=== PATIENT | female | born 1935 | race Asian ===

== ENCOUNTER 2020-12-07 13:46 | Emergency (ER) | payer MEDICARE, BC ==
[~2020-12-07] VITALS: Ht 170.2 cm; Wt 81.8 kg
[2020-12-07 14:03] VITALS: TEMP 98.1
[2020-12-07 14:50] LABS: BASO % 0.4 % (0.0-2.0); EOS # 0.2 (0.0-0.7); GRAN # 6.6 (1.4-6.5); GRAN % 69.6 % (42.2-75.2); LYMPH # 1.6 (1.2-3.4); LYMPH % 16.9 % (20.0-51.0); MEAN CELL VOLUME 91 fl (80.0-100.0); MEAN CORPUSCULAR HEMOGLOBIN 31 pg (27.0-31.0); MEAN CORPUSCULAR HGB CONC 33 g/dl (33.0-37.0); MEAN PLATELET VOLUME 10.5 fl (7.4-10.4); MONO % 10.6 % (1.7-9.3); PLATELET COUNT 143 K/mm3 (130-400); RED BLOOD COUNT 3.93 M/mm3 (4.10-5.30); REDCELL DISTRIBUTION WIDTH-CV 13.4 % (11.5-14.5)
[2020-12-07 14:59] LABS: HEMATOCRIT 35.9 % (37.0-47.0)
[2020-12-07 15:03] LABS: BILIRUBIN,TOTAL 0.6 mg/dL (0.0-1.0); C-REACTIVE PROTEIN 2.8 mg/dL (0.0-0.9); CREATININE, serum 0.89 (0.52-1.25); POTASSIUM 3.9 mmol/L (3.4-5.0); TOTAL PROTEIN 6.6 gm/dL (6.4-8.2)
[2020-12-07 15:07] LABS: INR 1.1 (0.8-3.0); PROTHROMBIN TIME 12.5 SECONDS (9.7-12.8)
[2020-12-07 15:11] LABS: COLLECTION METHOD CATHETER
[2020-12-07 15:26] LABS: PH 5 (5-8); SQUAMOUS EPITHELIAL None Seen /hpf; URINE APPEARANCE Clear; URINE BACTERIA None Seen /hpf; URINE BILIRUBIN Negative (NEGATIVE); URINE BLOOD Negative (NEGATIVE); URINE COLOR Yellow; URINE GLUCOSE Negative (NEGATIVE); URINE KETONE Trace (NEGATIVE); URINE LEUKOCYTE ESTERASE Negative (NEGATIVE); URINE NITRATE Negative (NEGATIVE); URINE PROTEIN(semi-quant) Negative (NEGATIVE); URINE RBC 0-2 /hpf; URINE UROBILINOGEN Negative (NEGATIVE)
[2020-12-07 19:20] VITALS: BP 133/70; PULSE 64
== END 2020-12-07 19:20 | disposition home or self-care (01) ==
LOC: COL.ER 13:46
PROVIDERS: Family Medicine
DX: F03.90 Unspecified dementia, unspecified severity, without behavioral disturbance, psychotic disturbance, mood disturbance, and anxiety (principal); I10 Essential (primary) hypertension; F41.9 Anxiety disorder, unspecified; Z86.73 Personal history of transient ischemic attack (TIA), and cerebral infarction without residual deficits
CPT/HCPCS: 31860; A4314

== ENCOUNTER 2022-01-13 13:02 | Emergency (ER) | payer MEDICARE, BC ==
[~2022-01-13] VITALS: Ht 154.9 cm; Wt 92.7 kg
[2022-01-13 14:08] LABS: BASO % 0.3 % (0.0-2.0); EOS # 0.1 K/mm3 (0.0-0.7); EOS % 0.6 % (0.0-4.0); GRAN # 6.2 K/mm3 (1.4-6.5); GRAN % 66.6 % (42.2-75.2); HEMOGLOBIN 12.1 g/dl (12.5-16.0); LYMPH # 2.2 K/mm3 (1.2-3.4); LYMPH % 23.2 % (20.0-51.0); MEAN CELL VOLUME 88 fl (80.0-100.0); MEAN CORPUSCULAR HEMOGLOBIN 30 pg (27-31); MEAN CORPUSCULAR HGB CONC 35 g/dl (33.0-37.0); MEAN PLATELET VOLUME 11.7 fl (7.4-10.4); MONO # 0.8 K/mm3 (0.1-0.6); MONO % 8.8 % (1.7-9.3); PLATELET COUNT 156 K/mm3 (130-400); RED BLOOD COUNT 3.99 M/mm3 (4.10-5.30); REDCELL DISTRIBUTION WIDTH-CV 12.4 % (11.5-14.5)
[2022-01-13 14:15] LABS: HEMATOCRIT 34.9 % (37.0-47.0)
[2022-01-13 14:17] LABS: ALBUMIN 4.1 gm/dL (3.4-4.8); BILIRUBIN,TOTAL 0.7 mg/dL (0.2-1.2); CALCIUM 9.6 mg/dL (8.4-10.2); CREATININE, serum 0.89 mg/dL (0.57-1.11); POTASSIUM 4.3 mmol/L (3.5-4.5)
[2022-01-13 14:25] LABS: TROPONIN-I 0.014 ng/mL (0.00-0.033)
[2022-01-13 14:51] LABS: COLLECTION METHOD CLEAN CATCH
[2022-01-13 15:50] LABS: PH 8.5 (5.0-8.5); URINE APPEARANCE Hazy (CLEAR/HAZY); URINE BLOOD Negative (NEGATIVE); URINE COLOR Yellow (YELLOW); URINE GLUCOSE Negative (NEGATIVE); URINE KETONE Negative (NEGATIVE); URINE NITRATE Negative (NEGATIVE); URINE PROTEIN(semi-quant) Negative (NEGATIVE); URINE UROBILINOGEN 0.2 E.U/dL (0.2-1.0)
[2022-01-13 16:04] LABS: AMORPHOUS CRYSTAL Present (NOT PRESENT); SQUAMOUS EPITHELIAL 0-2 /hpf (0-10); URINE RBC 0-2 /hpf (0-2)
[2022-01-13 16:17] VITALS: BP 157/87; PULSE 63; TEMP 99
[2022-01-13] MEDS ORDERED: AMOXICILLIN 8751 TAB PO (22:04)
[2022-01-13] MEDS ORDERED: ZITHROMAX Z PA250 MG PO (22:04)
== END 2022-01-13 17:10 | disposition home or self-care (01) ==
LOC: COL.ER 13:02
PROVIDERS: Emergency Medicine
DX: J18.9 Pneumonia, unspecified organism (principal); E86.0 Dehydration; E87.1 Hypo-osmolality and hyponatremia; E87.8 Other disorders of electrolyte and fluid balance, not elsewhere classified; R13.0 Aphagia
CPT/HCPCS: J7030